=== PATIENT | female | born 1975 | race Caucasian/White ===

== ENCOUNTER → 2019-09-11 | Outpatient (CLI) | payer OTHER | LOC: MAMMO 08-27 13:45 | DX: N63.21 Unspecified lump in the left breast, upper outer quadrant (principal) | CPT/HCPCS: 15989; 15990; A4648 ==

== ENCOUNTER → 2021-09-06 | Outpatient (CLI) | payer OTHER | LOC: MAMMO 13:45 | DX: Z12.31 Encounter for screening mammogram for malignant neoplasm of breast (principal); Z12.39 Encounter for other screening for malignant neoplasm of breast ==

== ENCOUNTER → 2024-08-11 | Outpatient (CLI) | payer OTHER | LOC: MAMMO 15:17 | DX: Z12.31 Encounter for screening mammogram for malignant neoplasm of breast (principal) ==